=== PATIENT | female | born 1970 | race Asian ===

== ENCOUNTER 2017-08-15 19:46 | Emergency (ER) | payer MEDICAID ==
[~2017-08-15] VITALS: Ht 157.5 cm; Wt 83.0 kg
[~2017-08-15 19:46] MED LIST: ASPI81TA87 PO; ATOR40TA28 PO; CARV3 PO; LISI-660 PO; SPIR25 PO
[2017-08-15] MEDS ORDERED: GELATIN SPONGE,ABSORBABLE 12-7 MM TP ONE (20:00)
[2017-08-15] MEDS ORDERED: FURO20 PO (20:02)
[2017-08-15 21:12] VITALS: BP 128/69
== END 2017-08-15 21:33 | disposition home or self-care (01) ==
LOC: EMS 19:48
DX: I83.891 Varicose veins of right lower extremity with other complications (principal); E78.00 Pure hypercholesterolemia, unspecified; I11.0 Hypertensive heart disease with heart failure; I50.9 Heart failure, unspecified; Z79.82 Long term (current) use of aspirin; Z90.49 Acquired absence of other specified parts of digestive tract; Z79.899 Other long term (current) drug therapy
CPT/HCPCS: 99283